=== PATIENT | female | born 1980 | race Caucasian/White ===

== ENCOUNTER 2021-01-01 14:30 | Outpatient (RCR) | payer BC, SELFPAY ==
--- NOTE | 2020-10-24 09:50 | PTOPEVAL ---
INITIAL PHYSICAL THERAPY EVALUATION and PLAN OF CARE Thank you for referring Kourtney Bueno to [facility].? Kourtney is scheduled to be seen for physical therapy? 2x/week for 4 weeks. Please review, sign, date and return this plan of care BELEM. I agree with and certify that the following plan of care is medically necessary. Referring Physician Date Admitting Provider: Attending Provider: Oscar James MD Referring Provider: *PT Outpatient Evaluation Start: 10/24/20 08:27 Freq: Status: Active Protocol: Document 10/24/20 08:25 JANETTE (Rec: 10/24/20 09:49 JANETTE [id number]) Therapy Assessment Status Assessment Status Assessment Status Evaluation Outpatient Past Medical History Past Medical History Source of Past Medical History Patient Neurological History Hx Neurological Disorders No Significant History Cardiovascular History Hx Cardiac Disorders No Significant History Respiratory History Hx Respiratory Disorders No Significant History Gastrointestinal History Hx Gastroesophageal Reflux Disease Yes Genitourinary History Hx Genitourinary Disorders No Significant History Musculoskeletal History Hx Other Musculoskeletal Disorders Yes: L shoulder pain Endocrine History Hx Endocrine Disorders No Significant History HEENT History Hx HEENT Disorders No Significant History Reproductive History Hx Reproductive Disorders No Significant History Evaluation Information Problem Diagnosis L pectoralis minor/conjoined tendon tendinitis Onset summer 2019 - March Subjective Information Doesn't recall anything that Query Text:As Reported By Patient/ she did - maybe slept on it Family wrong. Mobility limited with L arm - overhead or backwards. Unable to sleep on L side - side sleeper. Mornings - stiffer, sorer in mornings - hot shower helps to loosen it up. Pain doesn't really change as the day goes on. 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
--- NOTE | 2020-11-06 09:25 | PCPTNOTE ---
Patient called & cancelled scheduled appointment this date due to meeting conflict. Unable to reschedule this date.
--- NOTE | 2020-11-20 15:14 | PTOPEVAL ---
PHYSICAL THERAPY RE-EVALUATION and UPDATED PLAN OF CARE Thank you for referring Kourtney Bueno to [facility].? Kourtney is scheduled to be seen for physical therapy? 2x/week for 4 weeks. Please review, sign, date and return this plan of care BELEM. I agree with and certify that the following plan of care is medically necessary. Referring Physician Date Admitting Provider: Attending Provider: Oscar James MD Referring Provider: Therapy Assessment Status Assessment Status Assessment Status Re-evaluation Evaluation Information Problem Diagnosis L pectoralis minor/conjoined tendon tendinitis Subjective Information Kourtney reports that L arm isn't Query Text:As Reported By Patient/ as sore as was before. Can Family move it easier now without discomfort. Numbness still present off/on into L UE. 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 Pain Assessment Timing of Pain Assessment Timing of Pain Assessment Assessment Self Report Pain Assessment Left Shoulder(s) Reported Pain Level 1 Pain Description Soreness Lowest Pain Intensity 0 Greatest Pain Intensity 2 Pain Score Pain Score 1: Self Report Interventions Used Interventions Used By Clinicians Exercise,Manual Therapy Techniques Upper Extremity Range of Motion Scapular/ Shoulder Range of Motion Left Shoulder Flexion - Active 150 Shoulder Extension - Active 65 Shoulder Abduction - Active 155 Shoulder Medial Rotation - Active 85 Shoulder Medial Rotation - Active T8 Query Text:Reach Behind the Back Shoulder Lateral Rotation - Active 85 Shoulder Lateral Rotation - Active T3 Query Text:Reach Behind the Head Scapular/Shoulder Range of Motion ER in neutral - 84 Comments Upper Extremity Muscle Strength Testing Scapular/Shoulder Left Shoulder Flexion Strength 5 Normal Shoulder Extension Strength 5 Normal Shoulder Abduction Strength 5 Normal Shoulder Medial Rotation Strength 5 Normal Shoulder Lateral Rotation Strength 5 Normal Shoulder Strength Comments no pain with testing - numbness present with resisted humeral abduction Palpation Assessment Palpation Palpation Thoracic spine - still mild rotation L - decreased passive mobility into R thoracic/rib rotation. P-A glides decreased mobility T3-7 especially T4,5.
--- NOTE | 2020-12-06 11:19 | PCPTNOTE ---
Patient called & cancelled scheduled appointment this date due to illness.
--- NOTE | 2021-01-01 16:49 | PTOPEVAL ---
PHYSICAL THERAPY DISCHARGE SUMMARY Thank you for referring Kourtney Bueno to [facility].? Kourtney was seen for a total of 13 visits. She has met goals set and is ready to continue with her HEP. She is to call if she has any questions. I agree with and certify that the following plan of care is medically necessary. Referring Physician Date Admitting Provider: Attending Provider: Oscar James MD Referring Provider: Therapy Assessment Status Assessment Status Assessment Status Discharge Evaluation Information Problem Diagnosis L pectoralis minor/conjoined tendon tendinitis Subjective Information Kourtney reports soreness around L Query Text:As Reported By Patient/ SC jt and into L pectoralis - Family near insertion with outstretched arm. Did well while on vacation. Knows that she will need to be careful playing catch with son and with certain activities. Only a couple of occasions numbness into L UE. Pain Assessment Self Report Pain Assessment Left Shoulder(s) Reported Pain Level 1 Pain Description Soreness Lowest Pain Intensity 0 Greatest Pain Intensity 3 Upper Extremity Range of Motion Scapular/ Shoulder Range of Motion Left Shoulder Flexion - Active 153 Shoulder Extension - Active 65 Shoulder Abduction - Active 156 Shoulder Medial Rotation - Active 85 Shoulder Medial Rotation - Active T8 Query Text:Reach Behind the Back Shoulder Lateral Rotation - Active 85 Shoulder Lateral Rotation - Active T3 Query Text:Reach Behind the Head Scapular/Shoulder Range of Motion ER in neutral - 85 Comments Upper Extremity Muscle Strength Testing Scapular/Shoulder Left Shoulder Flexion Strength 5 Normal Shoulder Extension Strength 5 Normal Shoulder Abduction Strength 5 Normal Shoulder Medial Rotation Strength 5 Normal Shoulder Lateral Rotation Strength 5 Normal Shoulder Strength Comments no pain with testing - no numbness present with resisted humeral abduction Palpation Assessment Palpation Palpation tenderness at L SC jt - mobility symmetrical to R side - but soreness present on L L pectoralis - increase in tissue tension and discomfort - distal aspect near origin - but marked decrease in tightness overall - no radicular numbness symptoms
== END 2021-01-08 09:30 | disposition home or self-care (01) ==
LOC: ANHHIPT 14:30
PROVIDERS: PCP Family Medicine; Visit Provider Orthopaedic Surgery
DX: M25.512 Pain in left shoulder (principal); M75.82 Other shoulder lesions, left shoulder
CPT/HCPCS: 97014; 97110; 97140; 97161; G0283

== ENCOUNTER → 2022-10-15 15:57 | Outpatient (CLI) | payer BC, SELFPAY ==
--- NOTE | ~2022-10-15 | XR_ITS ---
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 RESULT: Lines, tubes, and devices: None. Lungs and pleura: Clear. Cardiomediastinal silhouette: Stable. Other: No acute osseous or upper abdominal finding. IMPRESSION: No acute cardiopulmonary process. Reviewed, dictated and finalized at location [facility]. [facility]
== END ==
PROVIDERS: PCP Family Medicine; Visit Provider Nurse Practitioner Family
DX: R05.9 Cough, unspecified (principal); R06.02 Shortness of breath
CPT/HCPCS: 71046

== ENCOUNTER 2023-12-31 02:51 | Day surgery (SDC) | payer BC, SELFPAY ==
[2023-12-18 11:00] VITALS: BMI 36.5
--- NOTE | 2023-12-29 10:45 | SUR.PREOP ---
Patient called regarding upcoming procedure. Voicemail left regarding appointment time.
[2023-12-31 13:19] VITALS: BP 136/81; PULSE 88; RESP 18; TEMP 36.2; O2SAT 100
[2023-12-31] MEDS: LACTATED RINGERS 1,000 ML 150 ML IV CONT (13:29)
--- NOTE | 2023-12-31 13:30 | WPDANESEPPF ---
Anes - Initial Pre Proc Eval Procedure: Operation Date: 12/31/23 14:30 Proposed Procedures p Esophagogastroduodenoscopy - Wayne Merrill MD Date/Time: 12/31/23 13:30 Surgeon: Wayne Merrill MD Pre Op Diagnosis: GERD Patient Data Age: 43 Gender: F Height: 1.73 m Weight: 108.9 kg Last Vital Signs Temp 97.1 F L 12/31/23 13:19 Pulse 88 12/31/23 13:19 Resp 18 12/31/23 13:19 BP 136/81 12/31/23 13:19 Pulse Ox 100 12/31/23 13:19 O2 Del Method Room Air 12/31/23 13:19 Allergies Allergy/AdvReac Type Severity Reaction Status Date / Time No Known Allergies Allergy Unknown Verified 12/31/23 13:18 Home Medications Medication Instructions Recorded Confirmed Type albuterol sulfate 90 mcg/actuation 2 inh inhalation Q4H PRN shortness 10/15/22 12/18/23 Rx aerosol inhaler of breath or wheezing #8.5 grams escitalopram oxalate 20 mg tablet 20 mg PO DAILY #90 tabs 08/15/23 12/18/23 Rx (Lexapro) bupropion HCl 150 mg 24 hr tablet, See Rx Instructions .Route 11/18/23 12/18/23 Rx extended release .COMPLEX #90 tabs omeprazole 40 mg capsule,delayed 40 mg PO DAILY #90 caps 12/24/23 Rx release Patient hx anesthesia problems: none Family hx anesthesia problems: none Results Review: All pre-operative results and documents have been reviewed as part of the pre-operative evaluation. [facility] Past Medical History Medical History Abnormal Pap smear of cervix 08/03/2008 Ascus + HPV ; 11/09/2012 [facility]us hpv negative Anxiety Asthma h/o exercise induced asthma BMI 34.0-34.9,adult BMI 35.0-35.9,adult BMI 36.0-36.9,adult Depression Screening mammogram, encounter for Surgical History Surgical History History of colposcopy with cervical biopsy 09/01/08 no tissue identified History of orthopedic surgery 2003 cyst removed from lt wrist History of tonsillectomy 02/14/18 Family History Family History Grandparent Carcinoma of colon maternal grandmother Family history of lung cancer Diabetes mellitus maternal grandmother paternal grandmother Cerebrovascular accident maternal grandmother Breast cancer maternal grandmother Father Diabetes mellitus Cholecystectomy planned Mother Tobacco abuse Vertigo Sibling Hyperglycemia Other Family history of coronary artery disease Social History Social History (Updated 11/28/23 @ 10:51 by ISMAEL Rivera) Smoking status: Never smoker Second hand tobacco smoke exposure: Yes Alcohol intake: current Drinks per week: 12 Alcohol use details: BEER Substance use: never Substance use type: does not use Do You Feel Safe in your Home?: Yes Lack of Transportation: No Lack of Food: Never True Current Housing: I Have Housing Concerned About Future Housing: No Difficulty Paying Gas/Electric Bills: No Difficulty Paying for Meds: No Currently Unemployed: No Education: Bachelor's Degree Difficulty w/ Childcare or Family Care: No Living arrangements: with family Additional living arrangements comments: Occupation/Education: occupation 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
--- NOTE | 2023-12-31 13:47 | PM.HPGS ---
History of Present Illness History of Present Illness Consent: Risks, benefits, and alternatives have been discussed and questions answered. Patient agrees to proceed with procedure. Chief complaint: GERD Narrative: Kourtney Bueno is a 43 year old female with longstanding gerd on omeprazole as needed, about 3 weeks ago had sensation of food getting caught in upper chest, better after prescription ppi. She thinks that had EGD when she was a kid. Review of Systems Review of Systems: All systems reviewed & are unremarkable except as noted in HPI and below [facility] Past Medical History Medical History (Updated 12/31/23 @ 13:49 by Wayne Merrill MD) Abnormal Pap smear of cervix 08/03/2008 Ascus + HPV ; 11/09/2012 [facility] hpv negative Anxiety Asthma h/o exercise induced asthma BMI 34.0-34.9,adult BMI 35.0-35.9,adult BMI 36.0-36.9,adult Depression Dysphagia GERD (gastroesophageal reflux disease) Screening mammogram, encounter for Surgical History Surgical History History of colposcopy with cervical biopsy 09/01/08 no tissue identified History of orthopedic surgery 2004 cyst removed from lt wrist History of tonsillectomy 02/14/18 Family History Family History Grandparent Carcinoma of colon maternal grandmother Family history of lung cancer Diabetes mellitus maternal grandmother paternal grandmother Cerebrovascular accident maternal grandmother Breast cancer maternal grandmother Father Diabetes mellitus Cholecystectomy planned Mother Tobacco abuse Vertigo Sibling Hyperglycemia Other Family history of coronary artery disease Social History Social History (Updated 11/28/23 @ 10:51 by ISMAEL Rivera) Smoking status: Never smoker Second hand tobacco smoke exposure: Yes Alcohol intake: current Drinks per week: 12 Alcohol use details: BEER Substance use: never Substance use type: does not use Do You Feel Safe in your Home?: Yes Lack of Transportation: No Lack of Food: Never True Current Housing: I Have Housing Concerned About Future Housing: No Difficulty Paying Gas/Electric Bills: No Difficulty Paying for Meds: No Currently Unemployed: No Education: Bachelor's Degree Difficulty w/ Childcare or Family Care: No Living arrangements: with family Additional living arrangements comments: Occupation/Education: occupation 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 [employer] Gender identity (if verbalized by the patient): Female Sexual Orientation (if Verbalized by the Patient): Straight or Heterosexual Spiritual care concerns: No Meds Home Medications and Allergies Home Medications Medication Instructions Recorded Confirmed Type albuterol sulfate 90 mcg/actuation 2 inh inhalation Q4H PRN shortness 10/15/22 12/18/23 Rx aerosol inhaler of breath or wheezing #8.5 grams escitalopram oxalate 20 mg tablet 20 mg PO DAILY #90 tabs 08/15/23 12/18/23 Rx (Lexapro) bupropion HCl 150 mg 24 hr tablet, See Rx Instructions .Route 11/18/23 12/18/23 Rx extended release .COMPLEX #90 tabs omeprazole 40 mg capsule,delayed 40 mg PO DAILY #90 caps 12/24/23 Rx release Allergies Allergy/AdvReac Type Severity Reaction Status Date / Time No Known Allergies Allergy Unknown Verified 12/31/23 13:18 Vital Signs Vital Signs - 24 hr 12/31/23 13:19 Temperature 97.1 F L Pulse Rate 88 Respiratory Rate 18 Blood Pressure 136/81 Pulse Oximetry 100 Oxygen Delivery Room Air Exam Const: General: comfortable and no acute distress HENMT: Face/Nose/Sinus: Normal nares present Eyes: General: appearance normal, both eyes and all related structures Neck: Neck: no JVD Resp: Auscultation: clear to auscultation bilaterally Cardio: Rate: regular rate Rhythm
[2023-12-31 14:08] VITALS: BP 133/92; PULSE 76; RESP 22; O2SAT 97
[2023-12-31 14:18] VITALS: BP 130/79; PULSE 75; RESP 19; O2SAT 96
[2023-12-31 14:28] VITALS: BP 126/91; PULSE 71; RESP 20; O2SAT 99
--- NOTE | 2024-01-01 13:05 | SUR.OPER ---
patient called around 1120 stated she felt like she has a narrowing in her chest/throat when she swallows or eats something and then pain follows in her breast bone area. Patient was questioning if this was normal from her procedure yesterday. Asked patient if her discomfort was more like a squeezing chest pain or having any shortness of breath. Patient denied shortness of breathe. Reviewed procedure report from yesterday discussed the doctor taking multiple biopsies from the esophagus which is the area she is experiencing the discomfort. Explained that we have some patients that complain of similar symptoms when biopsies are taken in the esophagus but they should improve over the next day or two. Instructed the patient that the office would be calling her in the next day or so with results of those biopsies. Instructed patient that if the pain increased, developed shortness of breathe to go to the nearest Emergency Room or she can call the office and if it was after hours the exchange would answer. Patient voiced understanding.
== END 2023-12-31 14:29 | disposition home or self-care (01) ==
PROVIDERS: PCP Family Medicine; Visit Provider Internal Medicine Gastroenterology
PROC: 0DJ08ZZ Inspection of Upper Intestinal Tract, Via Natural or Artificial Opening Endoscopic (ICD-10-PCS; CPT 43235; principal; 2023-12-31 14:30)
DX: K29.50 Unspecified chronic gastritis without bleeding (principal); K21.00 Gastro-esophageal reflux disease with esophagitis, without bleeding; J45.909 Unspecified asthma, uncomplicated; F41.9 Anxiety disorder, unspecified; F32.A Depression, unspecified; E66.9 Obesity, unspecified; Z68.36 Body mass index [BMI] 36.0-36.9, adult
CPT/HCPCS: 43239; 88305; J2704; J7120